=== PATIENT | male | born 1990 | race Caucasian/White ===

== ENCOUNTER 2022-09-11 12:23 | Emergency (ER) | payer BC, SELFPAY ==
[2022-09-11 12:45] VITALS: BP 136/86; PULSE 71; RESP 18; TEMP 36.9; O2SAT 99; BMI 36.5
--- NOTE | 2022-09-11 15:01 | ED.EXTPRO ---
HPI - Extremity Problem <DAVON Rojas - Last Filed: 09/11/22 15:12> General Chief complaint: Extremity Problem,Nontraumatic Stated complaint: R foot pain, big toe pain Time Seen by Provider: 09/11/22 14:23 Source: patient Mode of arrival: Family Vehicle History of Present Illness HPI Narrative: This is a 31-year-old gentleman who presents emergency department with right foot pain over the great toe MTP joint this started last night and this morning. Patient states that he was not able to walk because the pain was so severe, he denies any injury to this foot, denies any history of gout. Denies any numbness or tingling, states the top of his foot is red over the great toe joint. It is tender to palpation and worse with trying to walk. He denies any systemic symptoms of illness including fever, chills, denies any open wound. Related Data Previous Rx's Medication Instructions Recorded diclofenac sodium 1 % topical gel 4 g topical QID PRN pain #100 grams 09/11/22 ibuprofen 800 mg tablet 800 mg PO Q8H PRN pain #30 tabs 09/11/22 Allergies Allergy/AdvReac Type Severity Reaction Status Date / Time No Known Drug Allergies Allergy Verified 09/11/22 12:45 Review of Systems <DAVON Rojas - Last Filed: 09/11/22 15:12> Review of Systems ROS Unobtainable: All systems reviewed & are unremarkable except as noted in HPI and below Patient History <DAVON Rojas - Last Filed: 09/11/22 15:12> Social History Smoking Status: Never smoker Smoking Status: Never smoker alcohol intake frequency: 0-2 drinks per day Substance Use Type: does not use Exam <DAVON Rojas - Last Filed: 09/11/22 15:12> Narrative Exam Narrative: Reviewed vitals signs and nursing notes. General: cooperative, comfortable, in no acute distress, well groomed MSK: moves all extremities, neurovascularly intact, no weakness, normal tone, right foot with normal pulses and brisk cap refill, erythema over the dorsum of the forefoot primarily over the great toe MTP joint, mild erythema on the medial aspect of the MTP joint and tenderness to palpation, mild edema surround without open wound or streaking or evidence of cellulitis. Skin: brisk capillary refill, erythematous over right great toe MTP joint Neuro: normal speech and cognition, A&O x3, ambulatory, clear speech Psych: mental status is grossly normal, congruent mood, normal affect, pleasant and cooperative Initial Vital Signs Initial Vital Signs: Vital Signs Temperature 98.4 F 09/11/22 12:45 Pulse Rate 71 09/11/22 12:45 Respiratory Rate 18 09/11/22 12:45 Blood Pressure 136/86 09/11/22 12:45 Pulse Oximetry 99 09/11/22 12:45 Oxygen Delivery Method Room Air 09/11/22 12:45 <Marichuy Epstein DO - Last Filed: 09/19/22 08:11> Initial Vital Signs Initial Vital Signs: Vital Signs Temperature 98.4 F 09/11/22 12:45 Pulse Rate 71 09/11/22 12:45 Respiratory Rate 18 09/11/22 12:45 Blood Pressure 136/86 09/11/22 12:45 Pulse Oximetry 99 09/11/22 12:45 Oxygen Delivery Method Room Air 09/11/22 12:45 Course <DAVON Rojas - Last Filed: 09/11/22 15:12> Orders Ordered: Discontinued Medications Acetaminophen (Acetaminophen 325 Mg Tablet) 650 mg PO NOW ONE Stop: 09/11/22 14:56 Last Admin: 09/11/22 15:09 Dose: 650 mg Documented By: CTS Sodium Chloride (Normal Saline 0.9%) 1,000 mls @ 1,000 mls/hr IV BOLUS ONE Stop: 09/11/22 14:49 Last Admin: 09/11/22 13:57 Dose: Not Given Documented By: CTS Ibuprofen (Ibuprofen 400 Mg Tablet) 800 mg PO NOW ONE Stop: 09/11/22 15:04 Last Admin: 09/11/22 15:09 Dose: 800 mg Documented By: CTS Ketorolac Tromethamine (Ketorolac 30 Mg/Ml Vial) 15 mg IM NOW ONE Stop: 09/11/22 14:56 Last Admin: 09/11/22 15:06 Dose: Not Given Documented By: NR Ondansetron HCl (Ondansetron 4 Mg/2 Ml Inj) 4 mg IV NOW PRN PRN Reason: Nausea And Vomiting Prednisone (Prednisone 20 Mg Tablet) 40 mg PO NOW ONE Stop: 09/11/22 14:56 Last Admin: 09/11/22 15:09 Dose: 40 mg Documented By: CTS Vital Signs Vital signs: Vital Signs - 8 hr 09/11/22 12:45 Temperature 98.4 F Pulse Rate 71 Respiratory Rate 18 Blood Pressure 136/86 Pulse Oximetry 99 Oxygen Delivery Method Room Air <Marichuy Epstein DO - Last Filed: 09/19/22 08:11> Orders Ordered: Discontinued Medications Acetaminophen (Acetaminophen 325 Mg Tablet) 650 mg PO NOW ONE Stop: 09/11/22 14:56 Last Admin: 09/11/22 15:09 Dose: 650 mg Documented By: CTS Sodium Chloride (Normal Saline 0.9%) 1,000 mls @ 1,000 mls/hr IV BOLUS ONE Stop: 09/11/22 14:49 Last Admin: 09/11/22 13:57 Dose: Not Given Documented By: CTS Ibuprofen (Ibuprofen 400 Mg Tablet) 800 mg PO NOW ONE Stop: 09/11/22 15:04 Last Admin: 09/11/22 15:09 Dose: 800 mg Documented By: CTS Ketorolac Tromethamine (Ketorolac 30 Mg/Ml Vial) 15 mg IM NOW ONE Stop: 09/11/22 14:56 Last Admin: 09/11/22 15:06 Dose: Not Given Documented By: NR Ondansetron HCl (Ondansetron 4 Mg/2 Ml Inj) 4 mg IV NOW PRN PRN Reason: Nausea And Vomiting Prednisone (Prednisone 20 Mg Tablet) 40 mg PO NOW ONE Stop: 09/11/22 14:56 Last Admin: 09/11/22 15:09 Dose: 40 mg Documented By: CTS Vital Signs Vital signs: Vital Signs - 8 hr 09/11/22 12:45 Temperature 98.4 F Pulse Rate 71 Respiratory Rate 18 Blood Pressure 136/86 Pulse Oximetry 99 Oxygen Delivery Method Room Air MDM - Extremity (Nontraumatic) <DAVON Rojas - Last Filed: 09/11/22 15:12> MDM Narrative Medical decision making narrative: Chief Complaint: Right foot pain over great MTP joint Independent historian: Patient. Differential diagnoses include but are not limited to: Gout, cellulitis, osteo arthritis, osteomyelitis, fungal infection, contact dermatitis, foot sprain, DVT I have independently reviewed the patient's vital signs and nursing notes as well as prior records if available. On exam, patient has symptoms consistent with gout, never had an episode before, is planning on going to work tomorrow and wearing his work boots, he came in with flat hard soled sandals and will be discharged home in the same foot wear. Since he took ibuprofen prior to his arrival, gave 15 mg of IM Toradol, prescribed for him ibuprofen 800 mg q.8 hours and prednisone 40 mg daily x7 days, topical diclofenac gel to see if this will help. Encourage patient to come back if he has worsening pain, fever chills or if the swelling worsens Social considerations that may affect disposition: none Questions are addressed and there is agreement with the plan and for follow-up. Patient is appropriate for outpatient management. MIPS: This encounter doesn't have any diagnosis' associated with MIPS criteria. Discharge Plan Departure Patient Disposition: Home Clinical Impression: Gout Qualifiers: Gout site: foot Gout etiology: unspecified cause Chronicity: acute Laterality: right Qualified Code(s): M10.9 - Gout, unspecified Instructions: Gout Activity Restrictions/Additional Instructions: *You have been diagnosed with gout to your right foot. Please take prednisone 40 mg daily for the next 7 days with ibuprofen 800 mg every 8 hours with food and water both medications. Try to avoid these medicines on an empty stomach to avoid ulcer. Elevate frequently, avoid walking around much, there isn't evidence to support colchicine in addition to steroids and anti-inflammatories but if you have persistent flaring, please come back for another evaluation of this. I hope you feel better soon, good luck in your work boots tomorrow. You can try diclofenac gel/Voltaren gel which is a topical anti-inflammatory to the foot as well and see if this helps. *What to do: *Please continue to take your regular medications as directed. [ x] New medication prescriptions sent to your pharmacy: [ [facility]] [ ] New medication written as a paper prescription [ ] No new medications given *Please follow up with your primary care provider in 2-3 days, call for an appointment. Let them know you were seen in the Emergency Department and that we asked that you be seen for follow-up. We will electronically transmit a record of today's note if your PCP is in our system *If you do not have a primary care provider please contact [phone] to establish care with one of the [facility] primary care providers. *Return to Emergency Department if you should have any new, worsening, or concerning symptoms, such as [fever greater than 101F, chills, worsening pain, persistent vomiting or other bothersome symptoms]. Prescriptions: New ibuprofen 800 mg tablet 800 mg PO Q8H PRN (Reason: pain) Qty: 30 0RF diclofenac sodium 1 % gel 4 g topical QID PRN (Reason: pain) Qty: 100 0RF Rx Instructions: apply to single knee, ankle, foot; for foot includes sole/toes/top of foot Stand Alone Forms: Patient Portal/API <Marichuy Epstein, - Last Filed: 09/19/22 08:11> Cosign ED Attending Chaseature Attestation: I was immediately available in the department for consultation. Documentation has been reviewed.
[2022-09-11] MEDS: ACETAMINOPHEN 325 MG TABLET 650 MG PO (15:09)
[2022-09-11] MEDS: predniSONE 20 MG TABLET 40 MG PO (15:09)
[2022-09-11] MEDS: IBUPROFEN 400 MG TABLET 800 MG PO (15:09)
[2022-09-11 15:10] VITALS: BP 134/82; PULSE 80; RESP 16; O2SAT 97
== END 2022-09-11 15:10 | disposition home or self-care (01) ==
PROVIDERS: Emergency Provider Nurse Practitioner Critical Care Medicine
DX: M10.9 Gout, unspecified (principal)
CPT/HCPCS: 99283